=== PATIENT | female | born 1990 | race Caucasian/White ===

== ENCOUNTER 2020-06-21 13:48 | Outpatient (CLI) | payer OTHER ==
--- NOTE | 2020-06-21 15:13 | ULT ---
Sonogram soft tissues abdomen/pelvis HISTORY: Abdominal pain/inflammation. Extension to suprapubic area. FINDINGS: Sonographic evaluation of the area of concern/inflammation at the lower anterior abdomen an d suprapubic level shows subtle fluid infiltration throughout the prominent subcutaneous fat. No focal fluid collections are apparent. No solid masses. IMPRESSION : Fluid infiltration throughout the subcutaneous tissue could be associated with inflammation or simple edema/fluid. No evidence of abscess or solid mass.
== END 2020-06-21 13:49 | disposition home or self-care (01) ==
LOC: ULT 13:48
DX: E65 Localized adiposity (principal)
CPT/HCPCS: 76999